=== PATIENT | female | born 1985 | race Caucasian/White ===

== ENCOUNTER 2017-01-05 17:35 | Emergency (ER) | payer OTHER ==
[~2017-01-05 17:35] MED LIST: AMO500 PO; CIPR7.5D4 LEFT EAR; FAMO-96 PO; IBUP-1542 PO; MECL12.574 PO; NPH10OT LEFT EAR; OMEP20CA16 PO; ONDA4TAB14 PO
--- NOTE | 2017-01-05 20:44 | ERD ---
ER Documentation Chief Complaint Date/Time DATE: 01/05/17 TIME: 20:42 Chief Complaint This 31-year-old female presents with history of left eye redness. History significant for being scratched by her child 3 days ago. She has some discharge. She she was sent by her primary doctor for evaluation of fever cough as well. She denies any visual changes or visual field deficits and denies any vomiting, abdominal pain, urinary complaints ROS All systems reviewed and are negative except as per history of present illness. Medications Home Meds Active Scripts Ciprofloxacin Hcl/Dexameth (Ciprodex Otic Suspension) 7.5 Ml Drops.susp, 4 DROP LEFT EAR BID for 7 Days, EA Prov:ALYX GILL NP 06/14/16 Meclizine Hcl* (Antivert*) 12.5 Mg Tab, 25 MG PO Q6H Y for NAUSEA AND/OR VOMITING, #20 TAB Prov:ALYX GILL NP 06/14/16 Ibuprofen* (Ibuprofen*) 600 Mg Tablet, 600 MG PO Q6 for 3 Days, TAB Prov:TIERRA MEDRANO 06/09/16 Neomycin/Polymyxin/Hydrocort* (Cortisporin* Otic) 10 Ml Susp, 4 DROP LEFT EAR QID for 7 Days, EA Prov:TIERRA MEDRANO 06/09/16 Amoxicillin* (Amoxicillin*) 500 Mg Cap, 500 MG PO TID for 10 Days, CAP Prov:TIERRA MEDRANO 06/09/16 Ondansetron (Ondansetron Odt) 4 Mg Tab.rapdis, 4 MG PO Q6H Y for NAUSEA AND/OR VOMITING, #10 TAB Prov:JAVON YOUNGER PA-C 05/26/16 Meclizine Hcl* (Antivert*) 12.5 Mg Tab, 12.5 MG PO Q6H Y for DIZZINESS, #20 TAB Prov:JAVON YOUNGER PA-C 05/26/16 Famotidine* (Pepcid*) 20 Mg Tablet, 20 MG PO BID Y for gastritis for 4 Days, TAB Prov:DERIC HERNANDEZ MD 05/22/16 Omeprazole* (Omeprazole*) 20 Mg Capsule.dr, 20 MG PO DAILY, #30 Prov:DERIC HERNANDEZ MD 05/22/16 Allergies Allergies: Coded Allergies: No Known Allergy (Verified , 09/14/15) PMhx/Soc History of Surgery: Yes (Nasal&Eye Surgery@6y/o) Anesthesia Reaction: No Hx Neurological Disorder: No Hx Respiratory Disorders: No Hx Cardiac Disorders: No Hx Psychiatric Problems: No Hx Miscellaneous Medical Probl: No Hx Alcohol Use: No Hx Substance Use: No Hx Tobacco Use: No Physical Exam Physical Exam Const: [], [id number] per Head: Atraumatic Eyes: There is less scleral redness. There is some yellow discharge in the lower lid. Eyes are PERRLA and extraocular movements intact. ENT: Normal External Ears, Nose and Mouth. Neck: Full range of motion..~ No meningismus. Resp: Clear to auscultation bilaterally. No rales or wheezing appreciated Cardio: Regular rate and rhythm, no murmurs Abd: Soft, non tender, non distended. Normal bowel sounds Skin: No petechiae or rashes Back: No midline or flank tenderness Ext: No cyanosis, or edema Neur: Awake and alert Psych: Normal Mood and Affect Procedures/MDM Patient has no appreciable fluorescein uptake in the left eye. There is no abnormalities in the anterior chamber. X-ray, urinalysis and visual acuity was ordered but patient eloped prior to these examinations. A good neymar effort was made to locate the patient to no avail. Patient subsequently marked as eloped. Departure Diagnosis: Primary Impression: Acute URI Additional Impression: Conjunctivitis Conjunctivitis type: acute Acute conjunctivitis type: unspecified Laterality: left Qualified Code: H10.32 - Acute conjunctivitis of left eye, unspecified acute conjunctivitis type Condition: CHENG Dickens MD Jan 05, 2017 20:44
== END 2017-01-05 19:43 | disposition left against medical advice (07) ==
LOC: FTE 17:35 → E/R 19:43
DX: J06.9 Acute upper respiratory infection, unspecified (principal); H10.32 Unspecified acute conjunctivitis, left eye
CPT/HCPCS: 99282

== ENCOUNTER 2017-09-04 05:03 | Emergency (ER) | END 2017-09-04 10:02 | disposition home or self-care (01) ==

== ENCOUNTER 2019-02-18 12:22 | Emergency (ER) | payer MEDICAID, OTHER ==
[~2019-02-18] VITALS: Wt 97.8 kg
[~2019-02-18 12:22] MED LIST changes: +ACET-141 PO; +ALBU18HF INHALATION; -AMO500 PO; +AMOX500C2 PO; +CIPR7.5D LEFT EAR; -CIPR7.5D4 LEFT EAR; +GUAI-637 PO; +HYDR-4011 PO; +METO10TA92 PO; +PROM6.2515 PO
[2019-02-18 12:29] VITALS: BP 123/66; PULSE 86; RESP 18
== END 2019-02-18 14:43 | disposition home or self-care (01) ==
LOC: E/R 12:22
DX: O99.511 Diseases of the respiratory system complicating pregnancy, first trimester (principal); J45.901 Unspecified asthma with (acute) exacerbation; Z3A.10 10 weeks gestation of pregnancy
CPT/HCPCS: 99283

== ENCOUNTER 2019-02-21 16:21 | Emergency (ER) | payer MEDICAID ==
[~2019-02-21] VITALS: Ht 160 cm; Wt 100.7 kg
[2019-02-21 16:54] VITALS: BP 124/74; PULSE 78; RESP 18; Ht 160 cm; Wt 100.7 kg
== END 2019-02-21 18:04 | disposition home or self-care (01) ==
LOC: FTE 16:21 → E/R 18:04
DX: O26.891 Other specified pregnancy related conditions, first trimester (principal); O99.511 Diseases of the respiratory system complicating pregnancy, first trimester; J45.909 Unspecified asthma, uncomplicated; R11.0 Nausea; Z3A.01 Less than 8 weeks gestation of pregnancy
CPT/HCPCS: 99283